=== PATIENT | male | born 1970 | race Hispanic/Latino ===

== ENCOUNTER 2018-03-07 01:07 | Emergency (ER) | payer BC ==
[2018-03-07 01:21] VITALS: TEMP 98.8; O2SAT 100
--- NOTE | 2018-03-07 02:01 | ED PDOC ---
HPI: Abdomen Time Seen by Provider: 03/07/18 01:33 Chief Complaint (Nursing): Abdominal Pain Chief Complaint (Provider): Abdominal pain History Per: Patient History/Exam Limitations: no limitations Onset/Duration Of Symptoms: Hrs (x2) Location Of Pain/Discomfort: LLQ Quality Of Discomfort: Sharp Additional Complaint(s): Marc Odom, a 47 year old male with no past medical history, presents to the emergency department with LLQ pain onset midnight. Patient states he was woken up by LLQ pain which he describes as sharp, constant and non-radiating. Patient denies associated nausea or vomiting, urinary symptoms, fever or chills. He reports normal bowel movements. No further medical complaints. Past Medical History Reviewed: Historical Data, Nursing Documentation, Vital Signs Vital Signs: Last Vital Signs Temp 98.8 F 03/07/18 01:19 Pulse 60 03/07/18 01:19 Resp 16 03/07/18 01:19 BP 132/80 03/07/18 01:19 Pulse Ox 100 03/07/18 02:05 - Medical History PMH: No Chronic Diseases - Family History Family History: States: Unknown Family Hx - Home Medications Home Medications: Ambulatory Orders Medication Instructions Recorded Ciprofloxacin [Cipro] 500 mg PO BID 7 Days tab 03/07/18 Dicyclomine [Bentyl] 20 mg PO BID #30 tab 03/07/18 metroNIDAZOLE [Flagyl] 500 mg PO BID 7 Days tab 03/07/18 - Allergies Allergies/Adverse Reactions: Allergies Allergy/AdvReac Type Severity Reaction Status Date / Time No Known Allergies Allergy Verified 03/07/18 01:21 Review of Systems ROS Statement: Except As Marked, All Systems Reviewed And Found Negative Constitutional: Negative for: Fever, Chills Gastrointestinal: Positive for: Abdominal Pain (llq). Negative for: Nausea, Vomiting, Diarrhea, Melena, Hematochezia Genitourinary Male: Negative for: Dysuria, Frequency, Incontinence, Hematuria Physical Exam - Reviewed Nursing Documentation Reviewed: Yes - Physical Exam Appears: Positive for: Well, Non-toxic, No Acute Distress Head Exam: Positive for: ATRAUMATIC, NORMAL INSPECTION, NORMOCEPHALIC Skin: Positive for: Normal Color, Warm, DRY Eye Exam: Positive for: EOMI, Normal appearance, PERRL ENT: Positive for: Normal ENT Inspection Neck: Positive for: Normal, Painless ROM Cardiovascular/Chest: Positive for: Regular Rate, Rhythm Respiratory: Positive for: Normal Breath Sounds. Negative for: Respiratory Distress Gastrointestinal/Abdominal: Positive for: Tenderness (mild LLQ) Back: Positive for: Normal Inspection Extremity: Positive for: Normal ROM Neurologic/Psych: Positive for: Alert, Oriented - Laboratory Results Result Diagrams: 03/07/18 01:55 03/07/18 01:55 - ECG O2 Sat by Pulse Oximetry: 100 (RA) Pulse Ox Interpretation: Normal Medical Decision Making Medical Decision Making: Time: 01:33 A/P: 47 year old male presenting with LLQ pain, very well appearing with normal vitals Differential includes diverticulitis vs colitis vs gas vs constipation --Ct abd/pelvis --BMP --Liver profile --CBC w/differential --Toradol 30 mg IVP --urinalysis 500 --Patient's CT showed enteritis/constipation --Patient felt much better --Advised followup with patient's on GI --Patient well appearing, normal vitals upon discharge --- Scribe Attestation: Documented by Anabel Bonilla, acting as a scribe for Shaq Waldrop MD. Provider Scribe Attestation: All medical record entries made by the Scribe were at my direction and person ally dictated by me. I have reviewed the chart and agree that the record accurately reflects my personal performance of the history, physical exam, medical decision making, and the department course for this patient. I have also personally directed, reviewed, and agree with the discharge instructions and disposition. Disposition - Clinical Impression Clinical Impression: Enteritis, Constipation - Disposition Disposition: Routine/Home Disposition Time: 05:58 Condition: IMPROVED Prescriptions: Ciprofloxacin [Cipro] 500 mg PO BID 7 Days tab Dicyclomine [Bentyl] 20 mg PO BID #30 tab metroNIDAZOLE [Flagyl] 500 mg PO BID 7 Days tab Instructions: Constipation in Adults Forms: [employer] eto ([place]izen [place]) - Pt Status Changed To: Hospital Dis[facility] Of: [facility] - Admit Certification Admit to Inpatient:: Main - POA Present On Arrival: None
[2018-03-07 02:22] LABS: BASO % 0.3 % (0.0-2.0); EOS % 0.3 % (0.0-4.0); HEMOGLOBIN 13.3 g/dL (12.0-18.0); LYMPH # 2.2 K/uL (1.0-4.3); LYMPH % 36.1 % (20.0-40.0); MEAN CORPUSCULAR HEMOGLOBIN 30.4 pg (27.0-31.0); MEAN CORPUSCULAR HGB CONC 34.2 g/dL (33.0-37.0); MEAN PLATELET VOLUME 7.4 fl (7.2-11.7); MONO # 0.5 K/uL (0.0-0.8); MONO % 8.5 % (0.0-10.0); NEUT # 3.3 K/uL (1.8-7.0); NEUT % 54.8 % (50.0-75.0); RBC 4.36 Mil/uL (4.40-5.90); RED CELL DISTRIBUTION WIDTH 14.3 % (11.5-14.5); WHITE BLOOD COUNT 6.1 K/uL (4.8-10.8)
[2018-03-07 02:38] LABS: ALB/GLOB RATIO 1.3 (1.0-2.1); ALBUMIN 3.8 g/dL (3.5-5.0); ALT/SGPT 41 U/L (21-72); AST/SGOT 29 U/L (17-59); BILIRUBIN,DIRECT 0.1 mg/ml (0.0-0.4); BLOOD UREA NITROGEN 16 mg/dl (9-20); CALCIUM 8.9 mg/dL (8.4-10.2); GFR NON-AFRICAN AMERICAN > 60
[2018-03-07] MEDS ORDERED: Sodium Chloride 0.9% 50 ML IV ONE (02:41)
[2018-03-07] MEDS ORDERED: Iohexol 300 100 ML IJ ONE (02:41)
[2018-03-07 06:08] VITALS: BP 113/67; PULSE 55; RESP 18
[2018-03-07 08:06] LABS: URINE BILIRUBIN NEGATIVE (NEGATIVE); URINE CLARITY Clear (Clear); URINE COLOR YELLOW (YELLOW); URINE GLUCOSE (UA) NEGATIVE (Normal)
[2018-03-07 08:12] LABS: URINE BLOOD NEGATIVE (NEGATIVE); URINE PROTEIN NEGATIVE (NEGATIVE)
[2018-03-07 08:13] LABS: SQUAMOUS EPITHIAL < 1 /hpf (0-5); URINE LEUKOCYTE ESTERASE NEGATIVE Leu/uL (Negative); URINE UROBILINOGEN 0.2 mg/dL (0.2-1.0)
--- NOTE | 2018-03-07 12:36 | CT ---
Date of service: 03/07/2018 PROCEDURE: CT Abdomen and Pelvis with contrast HISTORY: LLQ pain COMPARISON: None. TECHNIQUE: Contrast dose: 90 mL Omnipaque 300 Radiation dose: Total exam DLP = 306.7 mGy-cm. This CT exam was performed using one or more of the following dose reduction techniques: Automated exposure control, adjustment of the mA and/or kV according to patient size, and/or use of iterative reconstruction technique. FINDINGS: LOWER THORAX: Unremarkable. LIVER: Unremarkable. No gross lesion or ductal dilatation. GALLBLADDER AND BILE DUCTS: Unremarkable. PANCREAS: Unremarkable. No gross lesion or ductal dilatation. SPLEEN: Unremarkable. ADRENALS: Unremarkable. No mass. KIDNEYS AND URETERS: Punctate left lower pole nonobstructive calculus. No hydronephrosis. No solid mass. VASCULATURE: Unremarkable. No aortic aneurysm. BOWEL: Mild wall thickening of the descending colon. No obstruction. No gross mural thickening. APPENDIX: No findings to suggest acute appendicitis. PERITONEUM: Unremarkable. No free fluid. No free air. LYMPH NODES: Unremarkable. No enlarged lymph nodes. BLADDER: Unremarkable. REPRODUCTIVE: Unremarkable. BONES: No acute fracture. OTHER FINDINGS: None. IMPRESSION: Nonobstructive left lower pole calculus. Mild descending colonic wall thickening versus underdistention may represent acute infectious/inflammatory colitis in the appropriate clinical setting. Clinical correlation is recommended.
== END 2018-03-07 05:20 | disposition home or self-care (01) ==
LOC: H.ER 01:07
DX: K52.9 Noninfective gastroenteritis and colitis, unspecified (principal); K59.00 Constipation, unspecified
CPT/HCPCS: 74177; 80048; 80076; 81003; 85025; 96374; 99284; J1885; Q9967